=== PATIENT | male | born 1975 | race Caucasian/White ===

== ENCOUNTER 2022-10-09 00:30 | Day surgery (SDC) | payer OTHER, SELFPAY ==
[2022-08-24 08:57] VITALS: BMI 27.1
[2022-10-05 14:07] VITALS: BMI 27.1
[2022-10-09 10:15] VITALS: BP 143/93; PULSE 77; RESP 77; TEMP 36.7; O2SAT 98; BMI 26.7
[2022-10-09] MEDS: LACTATED RINGERS 1,000 ML 150 ML IV CONT (10:32)
--- NOTE | 2022-10-09 10:43 | P.HP_ITS ---
History of Present Illness History of Present Illness Consent: Risks, benefits, and alternatives have been discussed and questions answered. Patient agrees to proceed with procedure. Chief complaint: neoplasm screening Narrative: Alejo Garnica is a 46 year old male Presents for screening colonoscopy. Patient's current weight appetite and bowel movements are normal. Patient denies abdominal pain. He has had no bleeding. Family history is significant that his father had colon cancer. No other family members are known to have polyps. Review of Systems Review of Systems: Review of systems noncontributory. [facility] Social History Social History Smoking status: Never smoker Alcohol intake: current Alcohol use details: rarely Substance use: never Substance use type: does not use Living arrangements: with family Spiritual care concerns: No Meds Home Medications and Allergies Home Medications Medication Instructions Recorded Confirmed Type No Home Medications 08/24/22 10/09/22 History Allergies Allergy/AdvReac Type Severity Reaction Status Date / Time No Known Allergies Allergy Verified 10/09/22 10:16 Vital Signs Vital Signs - 24 hr 10/09/22 10:15 Temperature 98.1 F Pulse Rate 77 Respiratory Rate 77 H Blood Pressure 143/93 H Pulse Oximetry 98 Oxygen Delivery Room Air Exam Narrative: Physical exam reveals patient to be alert. Vital signs stable. HEENT exam is unremarkable. Patient is anicteric. Lungs are clear to auscultation and percussion. Heart is without murmur or extra sounds. Abdomen bowel sounds are present soft nontender with no organomegaly. Digital external rectal exam is normal. Assessment and Plan Assessment and plan (1) Family history of colon cancer in father: Code(s): Z80.0 - Family history of malignant neoplasm of digestive organs Status: Acute Assessment and Plan: Patient's father had colon cancer. Plan for surveillance colonoscopy now and consider this at 5 year intervals in the future.
--- NOTE | 2022-10-09 11:02 | P.PNAN_ITS ---
Anes - Initial Pre Proc Eval Procedure: Operation Date: 10/09/22 11:30 Proposed Procedures p Screening Colonoscopy - Mamadou Damon MD Date/Time: 10/09/22 11:02 Surgeon: Mamadou Damon MD Pre Op Diagnosis: neoplasm screening Patient Data Age: 46 Gender: M Height: 1.88 m Weight: 94.5 kg Last Vital Signs Temp 98.1 F 10/09/22 10:15 Pulse 77 10/09/22 10:15 Resp 77 H 10/09/22 10:15 BP 143/93 H 10/09/22 10:15 Pulse Ox 98 10/09/22 10:15 O2 Del Method Room Air 10/09/22 10:15 Allergies Allergy/AdvReac Type Severity Reaction Status Date / Time No Known Allergies Allergy Verified 10/09/22 10:16 Home Medications Medication Instructions Recorded Confirmed Type No Home Medications 08/24/22 10/09/22 History Patient hx anesthesia problems: none Family hx anesthesia problems: none Results Review: All pre-operative results and documents have been reviewed as part of the pre- operative evaluation. [facility] Social History Social History Smoking status: Never smoker Alcohol intake: current Alcohol use details: rarely Substance use: never Substance use type: does not use Living arrangements: with family Spiritual care concerns: No Anes - Eval Final PreProcedure Day of Procedure 10/09/22 11:02 Patient weight: overweight Heart: regular rate and rhythm Lungs: clear to auscultation Airway: Mallampati scale class III Neurological: alert and oriented Last oral intake: >/= 8 hours ASA classification: II Emergent: no Anesthetic plan: proceed Anesthesia type and monitoring: general GIVS and standard monitoring Results Review: All pre-operative results and documents have been reviewed as part of the pre-operative evaluation. Informed Consent: The patient's anesthetic plan and its attendant risks and benefits were discussed with the patient/family/POA. Questions were solicited and answers provided to the satisfaction of the patient/family/POA.
[2022-10-09 11:46] VITALS: BP 119/90; PULSE 76; RESP 27; O2SAT 99
[2022-10-09 11:56] VITALS: BP 128/95; PULSE 80; RESP 19; O2SAT 99
[2022-10-09 12:06] VITALS: BP 142/98; PULSE 71; RESP 13; O2SAT 100
== END 2022-10-09 12:19 | disposition home or self-care (01) ==
PROVIDERS: PCP Family Medicine; Visit Provider Internal Medicine Gastroenterology
PROC: 0DJD8ZZ Inspection of Lower Intestinal Tract, Via Natural or Artificial Opening Endoscopic (ICD-10-PCS; CPT 45378; principal; 2022-10-09 11:30)
DX: Z12.11 Encounter for screening for malignant neoplasm of colon (principal); D12.8 Benign neoplasm of rectum; Z80.0 Family history of malignant neoplasm of digestive organs
CPT/HCPCS: 45385; 88305; J2704; J7120